=== PATIENT | female | born 1975 | race American Indian/Alaskan Native ===

== ENCOUNTER 2019-02-04 04:38 | Emergency (ER) | payer OTHER ==
[2019-02-04 04:44] VITALS: BP 144/104
[2019-02-04 05:02] LABS: Hematocrit 35.1 % (30.3-42.9); Hemoglobin 12.4 gm/dl (10.1-14.3); Mean Corpuscular HGB Conc 35 % (30-34); Platelet Count 254 K/mm3 (140-440); Red Blood Count 3.13 M/mm3 (3.65-5.03); Red Cell Distribution Width 15.6 % (13.2-15.2)
[2019-02-04 05:05] LABS: Mean Corpuscular Volume 112 fl (79-97)
--- NOTE | 2019-02-04 06:04 | Emergency Department Report ---
ED Female HPI - General Chief complaint: Vaginal Bleeding Stated complaint: VAGINAL SPOTTING Source: patient Mode of arrival: Ambulatory Limitations: No Limitations - History of Present Illness Initial comments: pt is a 43 y/o aaf with hx AUB who present for vaginal spotting cramping superpubic pain x 3 days during intercourse Lmp was 2 months ago, has pos preg test that date, pt presents today to rule out Misscarriage. pt denies active bleeding at this time. MD Complaint: vaginal bleeding Onset/Timin -: week(s) Radiation: suprapubic Severity: moderate Severity scale (0 -10): 4 Quality: cramping Consistency: intermittent Improves with: none Worsens with: none Are you Now?: No Associated Symptoms: abdominal pain. denies: vaginal discharge, vaginal bleed ing - Related Data Sexually active: Yes : 2 Para: 2 A: 0 Previous Rx's Medication Instructions Recorded Last Taken Type Ibuprofen 800 mg PO TID PRN #30 tablet 02/04/19 Unknown Rx Nitrofurantoin Monohyd/M-Cryst 100 mg PO BID 7 Days #14 capsule 02/04/19 Unknown Rx [Macrobid 100 mg Capsule] Allergies Allergy/AdvReac Type Severity Reaction Status Date / Time No Known Allergies Allergy Unverified 02/04/19 04:40 ED Review of Systems ROS: Stated complaint: VAGINAL SPOTTING Other details as noted in HPI Constitutional: denies: chills, fever Eyes: denies: eye pain, eye discharge, vision change ENT: denies: ear pain, throat pain Respiratory: denies: cough, shortness of breath, wheezing Cardiovascular: denies: chest pain, palpitations Endocrine: no symptoms reported Gastrointestinal: abdominal pain Genitourinary: denies: urgency, dysuria, discharge Musculoskeletal: denies: back pain, joint swelling, arthralgia Skin: denies: rash, lesions Neurological: denies: headache, weakness, paresthesias Psychiatric: denies: anxiety, depression Hematological/Lymphatic: denies: easy bleeding, easy bruising ED Past Medical Hx - Past Medical History Previous Medical History?: Yes Hx Hypertension: Yes Additional medical history: pancreatitis, ovarian cysts - Surgical History Past Surgical History?: Yes Additional Surgical History: skin grafts - Social History Smoking Status: Current Every Day Smoker Substance Use Type: Alcohol - Medications Home Medications: Home Medications Medication Instructions Recorded Confirmed Last Taken Type Ibuprofen 800 mg PO TID PRN #30 tablet 02/04/19 Unknown Rx Nitrofurantoin Monohyd/M-Cryst 100 mg PO BID 7 Days #14 capsule 02/04/19 Unknown Rx [Macrobid 100 mg Capsule] ED Physical Exam - General Limitations: No Limitations General appearance: alert, in no apparent distress - Head Head exam: Present: atraumatic, normocephalic - Eye Eye exam: Present: PERRL, EOMI Pupils: Present: normal accommodation - ENT ENT exam: Present: mucous membranes moist - Neck Neck exam: Present: normal inspection - Respiratory Respiratory exam: Present: normal lung sounds bilaterally. Absent: respiratory distress, wheezes, stridor, chest wall tenderness - Cardiovascular Cardiovascular Exam: Present: regular rate, normal rhythm, normal heart sounds. Absent: systolic murmur, diastolic murmur, rubs, gallop - GI/Abdominal GI/Abdominal exam: Present: soft, tenderness (mild superpubic tenderness to deep palpation), normal bowel sounds. Absent: distended, guarding, rebound, rigid, bruit, hernia - Rectal Rectal exam: Present: deferred - Extremities Exam Extremities exam: Present: normal inspection - Back Exam Back exam: Present: normal inspection, full ROM. Absent: tenderness, CVA tenderness (R), CVA tenderness (L), muscle spasm, paraspinal tenderness, vertebral tenderness, rash noted - Psychiatric Psychiatric exam: Present: normal affect, normal mood - Skin Skin exam: Present: warm, dry, intact, normal color. Absent: rash ED Course Vital Signs 02/04/19 02/04/19 04:40 07:01 Temperature 97.8 F Pulse Rate 99 H Respiratory 18 18 Rate Blood Pressure 144/104 O2 Sat by Pulse 100 98 Oximetry ED Medical Decision Making - Lab Data Result diagrams: 02/04/19 04:47 Labs 02/04/19 02/04/19 02/04/19 04:47 04:47 06:30 WBC 6.8 RBC 3.13 L Hgb 12.4 Hct 35.1 MCV 112 H MCH 40 H MCHC 35 H RDW 15.[address] Pl[address] Count [address] [place] % (Auto) Service Cashier Add Manual Diff Complete Total Counted 100 Seg Neutrophils % Service Cashier Seg Neuts % (Manual) 68.0 Band Neutrophils % 0 Lymphocytes % (Manual) 27.0 Reactive Lymphs % (Man) 0 Monocytes % (Manual) 5.0 Eosinophils % (Manual) 0 Basophils % (Manual) 0 Metamyelocytes % 0 Myelocytes % 0 Promyelocytes % 0 Blast Cells % 0 Nucleated RBC % Not Reportable Seg Neutrophils # Man 4.6 Band Neutrophils # 0.0 Lymphocytes # (Manual) 1.8 Abs React Lymphs (Man) 0.0 Monocytes # (Manual) 0.3 Eosinophils # (Manual) 0.0 Basophils # (Manual) 0.0 Metamyelocytes # 0.0 Myelocytes # 0.0 Promyelocytes # 0.0 Blast Cells # 0.0 WBC Morphology Not Reportable Hypersegmented Neuts Not Reportable Hyposegmented Neuts Not Reportable Hypogranular Neuts Not Reportable Smudge Cells Not Reportable Toxic Granulation Not Reportable Toxic Vacuolation Not Reportable Dohle Bodies Not Reportable Pelger-Huet Anomaly Not Reportable Nanda Rods Not Reportable Platelet Estimate Appears normal Clumped Platelets Not Reportable Plt Clumps, EDTA Not Reportable Large Platelets Not Reportable Giant Platelets Not Reportable Platelet Satelliting Not Reportable Plt Morphology Comment Not Reportable RBC Morphology Not Reportable Dimorphic RBCs Not Reportable Polychromasia Not Reportable Hypochromasia Not Reportable Poikilocytosis Not Reportable Anisocytosis 1+ Microcytosis Not Reportable Macrocytosis 1+ Spherocytes Not Reportable Pappenheimer Bodies Not Reportable Sickle Cells Not Reportable Target Cells Not Reportable Tear Drop Cells Not Reportable Ovalocytes Not Reportable Helmet Cells Not Reportable Martin-Hester Bodies Not Reportable Dunnigan Rings Not Reportable [place] Cells Not Reportable Bite Cells Not Reportable Crenated Cell Not Reportable Elliptocytes Not Reportable Acanthocytes (Spur) Not Reportable Rouleaux Not Reportable Hemoglobin C Crystals Not Reportable Schistocytes Not Reportable Malaria parasites Not Reportable Chai Bodies Not Reportable Hem Pathologist Commnt No HCG, Quant < 2 Urine Color Yellow Urine Turbidity Hazy Urine pH 6.0 Ur Specific [place] 1.024 Urine Protein 30 mg/dl Urine Glucose (UA) Neg Urine Ketones Neg Urine Blood Lg Urine Nitrite Neg Urine Bilirubin Neg Urine Urobilinogen < 2.0 Ur Leukocyte Esterase Neg Urine WBC (Auto) 52.0 H Urine RBC (Auto) 35.0 U Epithel Cells (Auto) 1.0 - Medical Decision Making This is a UTI, UA: luek, wbc rb, pt denies dysuria frequenc or urgency no hematuria, pt has hx of AUB, plan, macrobid, Ibuprofen follow up with [facility] cbc is normal , there is no hcg <2, discussed all finding with patient , patient verbalized agreement and understanding of same. pt for dc to home ins table condition at this time. Critical care attestation.: If time is entered above; I have spent that time in minutes in the direct care of this critically ill patient, excluding procedure time. ED Disposition Clinical Impression: UTI (urinary tract infection) Qualifiers: Urinary tract infection type: acute cystitis Hematuria presence: without hematuria Qualified Code(s): N30.00 - Acute cystitis without hematuria Disposition: DC-01 TO HOME OR SELFCARE Is pt being admited?: No Does the pt Need Aspirin: No Condition: Stable Instructions: Urinary Tract Infection in Women (ED), Dysmenorrhea (ED) Prescriptions: Ibuprofen 800 mg PO TID PRN #30 tablet PRN Reason: pain Nitrofurantoin Monohyd/M-Cryst [Macrobid 100 mg Capsule] 100 mg PO BID 7 Days #14 capsule Referrals: [facility] [Outside] - 3-5 Days Forms: Work/School Release Form(ED) Time of Disposition: 07:15
[2019-02-04 06:54] LABS: Basophils % (Manual) 0 % (0.0-1.8); Eosinophils % (Manual) 0 % (0.0-4.3); Total Cells Counted 100
[2019-02-04 06:55] LABS: Anisocytosis 1+; Macrocytosis 1+
[2019-02-04 07:06] LABS: Bilirubin,Urine NEG (Negative); Blood,Urine LG (Negative); Color,Urine Yellow (Yellow); Urobilinogen,Urine < 2.0 mg/dL (<2.0)
== END 2019-02-04 07:20 | disposition home or self-care (01) ==
LOC: ED 04:38
DX: N39.0 Urinary tract infection, site not specified (principal); I10 Essential (primary) hypertension; F17.200 Nicotine dependence, unspecified, uncomplicated
CPT/HCPCS: 36415; 81001; 84702; 85007; 85025